=== PATIENT | female | born 1975 | race Caucasian/White ===

== ENCOUNTER → 2016-11-09 | Outpatient (REF) | payer OTHER ==
[~2016-11-09] MED LIST: /ONDA4TA OR; NAPR500T81 OR; No Historical Meds; PERC5TAB8 OR; PERC7.5T8 OR; [UNRECOGNIZED DRUG - OTHER] PO
== END ==
LOC: M LAB REF 16:42
PROVIDERS: ATTEND Otolaryngology
DX: L72.0 Epidermal cyst (principal)

== ENCOUNTER 2017-02-16 13:34 | Emergency (ER) | payer BC, OTHER ==
[~2017-02-16] VITALS: Ht 175.3 cm; Wt 99.3 kg
[2017-02-16] MEDS ORDERED: MIREIUD IU (13:43)
[2017-02-16] MEDS ORDERED: PHEN37.5 (13:43)
[2017-02-16] MEDS ORDERED: NS 1,000 ML IV ONE (13:45)
[2017-02-16] MEDS ORDERED: ONDANSETRON 4MG/2ML VIAL (J2405) IV ONE (13:45)
[2017-02-16] MEDS: MORPHINE 4 MG/ML 1ML SYRINGE IV PRN ×2 (13:49→14:12)
[2017-02-16 14:05] LABS: BASO % 0.7 % (0.0-1.0); EOS % 0.7 % (0.0-3.0); LARGE UNSTAINED CELL # 0.1 K/mm3 (0.0-0.4); LARGE UNSTAINED CELL % 1.9 % (0.0-4.0); LYMPH # 1.8 K/mm3 (1.5-4.5); LYMPH % 28.9 % (24.0-44.0); MEAN CORPUSCULAR HEMOGLOBIN 29.9 pg (27.0-33.0); MEAN CORPUSCULAR HGB CONC 33.2 g/dl (32.0-36.5); MONO # 0.3 K/mm3 (0.0-0.8); MONO % 4.7 % (0.0-5.0); NEUTROPHILS # 3.8 K/mm3 (1.8-7.7); NEUTROPHILS % 63.1 % (36.0-66.0); PLATELET COUNT, AUTOMATED 302 k/mm3 (150-450); RED CELL DISTRIBUTION WIDTH 12.6 % (11.5-14.5); WHITE BLOOD COUNT 6.1 K/mm3 (4.0-10.0)
[2017-02-16] MEDS ORDERED: KETOROLAC 30 MG/ML VIAL (J1885) As Ordered ONE (14:18)
[2017-02-16 14:24] LABS: ALBUMIN 4.1 GM/DL (3.2-5.2); ALBUMIN/GLOBULIN RATIO 1.03 (1.00-1.93); ALKALINE PHOSPHATASE 111 U/L (45-117); ALT/SGPT 22 U/L (12-78); ANION GAP 8 MEQ/L (8-16); AST/SGOT 17 U/L (15-37); BILIRUBIN,DIRECT 0.1 MG/DL (0.0-0.2); BILIRUBIN,TOTAL 0.4 MG/DL (0.2-1.0); BLOOD UREA NITROGEN 13 MG/DL (7-18); CALCIUM LEVEL 9.3 MG/DL (8.5-10.1); CARBON DIOXIDE LEVEL 27 MEQ/L (21-32); CHLORIDE LEVEL 104 MEQ/L (98-107); GLOMERULAR FILTRATION RATE > 60.0 (>58); GLUCOSE, FASTING 92 MG/DL (70-105); POTASSIUM SERUM 4.2 MEQ/L (3.5-5.1); SODIUM LEVEL 139 MEQ/L (136-145); TOTAL PROTEIN 8.1 GM/DL (6.4-8.2)
[2017-02-16] MEDS ORDERED: ISOVUE-370 76% 100ML VIAL (Q9967) As Ordered ONE (14:27)
[2017-02-16] MEDS ORDERED: KETOROLAC 30 MG/ML VIAL (J1885) IV ONE (14:30)
[2017-02-16] MEDS ORDERED: BENT20TA PO (16:12)
[2017-02-16 16:16] VITALS: BP 127/83
--- NOTE | 2017-02-17 09:19 | REP ---
CT ABDOMEN AND PELVIS WITH CONTRAST: HISTORY: Right lower quadrant pain. CONTRAST: Isovue-370, 100 mL. COMPARISON: 05/26/2015 The liver, gallbladder, pancreas, spleen, adrenal glands, and kidneys are normal in appearance. There is marked thinning of a segment of the distal ileum. There is no mass, adenopathy, or free fluid. The visualized lungs are clear. The urinary bladder and uterus are normal in appearance. An IUD is present in the uterus. The appendix is not seen. There is no appendicolith or abscess. IMPRESSION: There is narrowing of a segment of the distal ileum suspicious for inflammatory bowel disease. Signed by Yaniv Richardson MD 02/17/2017 09:26 A
== END 2017-02-16 16:23 | disposition home or self-care (01) ==
LOC: M ED 14:44
DX: K58.9 Irritable bowel syndrome, unspecified (principal); R10.84 Generalized abdominal pain
CPT/HCPCS: 74177; 80048; 80076; 81001; 81025; 83690; 85025; 96360; 96374; 96375; 99283; J1885; J2405; Q9967

== ENCOUNTER → 2017-02-19 | Outpatient (REF) | payer OTHER, BC ==
[~2017-02-19] MED LIST changes: +BENT20TA PO; +MIREIUD IU; +PHEN37.5
== END ==
LOC: M LAB REF 15:41
PROVIDERS: ATTEND Otolaryngology
DX: L72.0 Epidermal cyst (principal)

== ENCOUNTER → 2017-06-20 | Outpatient (CLI) | payer BC, OTHER ==
--- NOTE | 2017-06-21 14:26 | REP ---
Clinical: Asthma with acute exacerbation of this of breath. Comparison: 12/23/2014 . Technique: PA and lateral. Findings: The mediastinum and cardiac silhouette are normal. The lung mallory are clear and without acute consolidation, effusion, or pneumothorax. The skeletal structures are intact and normal. Impression: 1. No acute cardiopulmonary process. Signed by Jeyson Steinberg MD 06/20/2017 08:25 P
== END ==
LOC: M WUC 18:46
PROVIDERS: ATTEND Physician Assistant
DX: J45.21 Mild intermittent asthma with (acute) exacerbation (principal)

== ENCOUNTER 2017-12-26 11:34 | Emergency (ER) | payer BC, OTHER ==
[2017-12-26] MEDS: ONDANSETRON 4MG/2ML VIAL (J2405) IV (12:19)
[2017-12-26] MEDS: NS 1,000 ML IV (12:20)
[2017-12-26] MEDS: MORPHINE 4 MG/ML 1ML VIAL (J2270) IV ×2 (12:20→14:11)
[2017-12-26 12:34] LABS: BASO % 0.4 % (0.0-1.0); EOS # 0.1 10^3/uL (0.0-0.50); EOS % 1.3 % (0.0-3.0); HEMATOCRIT 41.5 % (36.0-47.0); HEMOGLOBIN 13.7 g/dl (12.0-16.0); IMMATURE GRANULOCYTE % 0.3 % (0-3.0); LYMPH # 1.9 10^3/uL (1.5-4.5); LYMPH % 28.3 % (24.0-44.0); MEAN CORPUSCULAR HEMOGLOBIN 29.3 pg (27.0-33.0); MEAN CORPUSCULAR VOLUME 88.7 fl (80.0-96.0); MONO # 0.5 10^3/uL (0.0-0.8); NEUTROPHILS # 4.2 10^3/uL (1.8-7.7); NEUTROPHILS % 61.7 % (36.0-66.0); PLATELET COUNT, AUTOMATED 330 10^3/uL (150-450); RED BLOOD COUNT 4.68 10^6/uL (4.00-5.40); RED CELL DISTRIBUTION WIDTH 12.8 % (11.5-14.5); WHITE BLOOD COUNT 6.8 10^3/uL (4.0-10.0)
[2017-12-26 13:01] LABS: ALBUMIN 3.9 GM/DL (3.2-5.2); ALBUMIN/GLOBULIN RATIO 0.95 (1.00-1.93); ALKALINE PHOSPHATASE 106 U/L (45-117); ALT/SGPT 31 U/L (12-78); ANION GAP 7 MEQ/L (8-16); AST/SGOT 24 U/L (7-37); BILIRUBIN,DIRECT 0.1 MG/DL (0.0-0.2); BILIRUBIN,TOTAL 0.6 MG/DL (0.2-1.0); BLOOD UREA NITROGEN 10 MG/DL (7-18); CARBON DIOXIDE LEVEL 28 MEQ/L (21-32); CHLORIDE LEVEL 105 MEQ/L (98-107); CREATININE FOR GFR 0.75 MG/DL (0.55-1.30); GLOMERULAR FILTRATION RATE > 60.0 (>58); GLUCOSE, FASTING 86 MG/DL (70-100); LIPASE 96 U/L (73-393); POTASSIUM SERUM 4.2 MEQ/L (3.5-5.1); SODIUM LEVEL 140 MEQ/L (136-145)
[2017-12-26] MEDS ORDERED: ISOVUE-370 76% 100ML VIAL (Q9967) As Ordered (13:26)
[2017-12-26] MEDS: HYDROmorphone HCL 1 MG/ML SYRINGE (J1170) IV ×2 (14:41→15:22)
[2017-12-26] MEDS ORDERED: HYDROmorphone HCL 1 MG/ML SYRINGE (J1170) IV (15:15)
[2017-12-26] MEDS: METOCLOPRAMIDE INJ 10MG/2ML VIAL (J2765) IV (16:50)
[2017-12-26 16:52] LABS: KETONE, URINE AUTO RFX 1+ mg/dL (NEGATIVE); LEUKOCYTE ESTERASE UR AUTO RFX NEGATIVE (NEGATIVE); MUCUS, URINE RFX SMALL (NEGATIVE); NITRITE, URINE AUTO RFX NEGATIVE (NEGATIVE); RBC, URINE AUTO RFX 1 /HPF (0-3); SPECIFIC GRAVITY UR AUTO RFX 1.059 (1.002-1.035); SQUAM EPITHELIAL CELL UR AURFX 1 /HPF (0-6); WBC, URINE AUTO RFX 0 /HPF (0-3)
[2017-12-26 17:02] LABS: INFLUENZA A AMPLIFICATION NEGATIVE (NEGATIVE); INFLUENZA B AMPLIFICATION NEGATIVE (NEGATIVE)
[2017-12-26] MEDS: KETOROLAC 30 MG/ML VIAL (J1885) IV (17:43)
[2017-12-26] MEDS: OXYCODONE/APAP 5MG/325MG(BULK FOR ED) 1 TABLET PO (18:31)
== END 2017-12-26 18:55 | disposition home or self-care (01) ==
LOC: M ED 11:34
DX: R10.31 Right lower quadrant pain (principal); Q43.3 Congenital malformations of intestinal fixation; R19.7 Diarrhea, unspecified; K58.9 Irritable bowel syndrome, unspecified; N80.9 Endometriosis, unspecified; Z79.899 Other long term (current) drug therapy
CPT/HCPCS: J1170

== ENCOUNTER → 2018-10-10 | Outpatient (REF) | payer OTHER ==
[~2018-10-10] MED LIST changes: +ALBU17IN2 INH; +ALBU83IN NEB; +MIRE1IUD IU; -MIREIUD IU; +OXYC1TAB23 PO; +PHEN37.5 PO; +PRED10TA2; +QVAR40AE12 INH; +REGL10TA6 PO; +TESS100C PO; +TUSS1SUS2 PO; +VITMTA PO
== END ==
LOC: M WUC 13:03
PROVIDERS: ATTEND Physician Assistant
DX: J06.9 Acute upper respiratory infection, unspecified (principal)

== ENCOUNTER 2018-10-14 20:29 | Emergency (ER) | payer BC, OTHER ==
[~2018-10-14] VITALS: Ht 175.3 cm; Wt 104.5 kg
[~2018-10-14 20:29] MED LIST changes: -ALBU17IN2 INH; -ALBU83IN NEB; -PRED10TA2; -QVAR40AE12 INH; -TESS100C PO; -TUSS1SUS2 PO
[2018-10-14] MEDS ORDERED: ALBU83IN NEB (20:37)
[2018-10-14] MEDS ORDERED: PRED10TA2 (20:37)
[2018-10-14] MEDS ORDERED: ALBU17IN2 INH (20:37)
[2018-10-14] MEDS ORDERED: QVAR40AE12 INH (20:42)
[2018-10-14] MEDS ORDERED: MIRE1IUD IU (20:47)
[2018-10-14] MEDS ORDERED: MAG SULF 1GM/100ML (MAG RUN) 1 GM in APPROPRIATE DILUENT 1 EA IV ONE ×4 (21:15)
[2018-10-14] MEDS ORDERED: TUSSICAPS ER 10/8MG CAPSULE PO ONE (21:15)
[2018-10-14 21:32] LABS: BASO % 0.2 % (0.0-1.0); HEMATOCRIT 38.9 % (36.0-47.0); HEMOGLOBIN 12.9 g/dl (12.0-15.5); LYMPH # 0.9 10^3/uL (1.5-4.5); LYMPH % 8.5 % (24.0-44.0); MEAN CORPUSCULAR HEMOGLOBIN 28.9 pg (27.0-33.0); MEAN CORPUSCULAR HGB CONC 33.2 g/dl (32.0-36.5); MEAN CORPUSCULAR VOLUME 87.2 fl (80.0-96.0); MONO # 0.4 10^3/uL (0.0-0.8); MONO % 3.4 % (0.0-5.0); NEUTROPHILS # 9.4 10^3/uL (1.8-7.7); NEUTROPHILS % 87.3 % (36.0-66.0); PLATELET COUNT, AUTOMATED 320 10^3/uL (150-450); RED BLOOD COUNT 4.46 10^6/uL (4.00-5.40); WHITE BLOOD COUNT 10.8 10^3/uL (4.0-10.0)
[2018-10-14 21:33] LABS: VENOUS BASE EXCESS -0.6 (-2.0-2.0); VENOUS HCO3 23.2 MEQ/L (23.0-27.0); VENOUS O2 SATURATION 98.6 % (60.0-80.0); VENOUS PARTIAL PRESSURE CO2 35.5 mmHg (38.0-50.0); VENOUS PARTIAL PRESSURE O2 115.8 mmHg (30.0-50.0); VENOUS PH 7.433 UNITS (7.330-7.430); VENOUS STANDARD HCO3 24.1 MEQ/L; VENOUS TOTAL CO2 24.3 MEQ/L (24.0-28.0)
[2018-10-14] MEDS: IPRATROPIUM 0.5MG/ALBUTEROL 2.5MG INH SOL UD 3ML (DUONEB)(J7620) NEB PRN ×2 (21:42→23:25)
[2018-10-14 21:57] LABS: BLOOD UREA NITROGEN 13 MG/DL (7-18); CALCIUM LEVEL 8.8 MG/DL (8.5-10.1); CARBON DIOXIDE LEVEL 23 MEQ/L (21-32); CHLORIDE LEVEL 107 MEQ/L (98-107); CREATININE FOR GFR 0.83 MG/DL (0.55-1.30); GLOMERULAR FILTRATION RATE > 60.0 (>58); GLUCOSE, FASTING 135 MG/DL (70-100); POTASSIUM SERUM 4.1 MEQ/L (3.5-5.1); SODIUM LEVEL 140 MEQ/L (136-145)
[2018-10-14] MEDS ORDERED: NS 1,000 ML IV ONE ×2 (22:15→23:15)
[2018-10-14] MEDS ORDERED: NORCO, ANEXSIA 5/325MG TABLET (HYDROcodone/ACETAMINOPHEN) PO ONE (22:45)
[2018-10-14] MEDS ORDERED: BENZONATATE 100 MG CAP PO ONE (23:30)
[2018-10-14] MEDS ORDERED: TESS100C PO (23:51)
[2018-10-14] MEDS ORDERED: TUSS1SUS2 PO (23:51)
[2018-10-15 00:45] VITALS: BP 117/70
--- NOTE | 2018-10-15 06:58 | REP ---
Clinical: Cough and dyspnea . Comparison: 06/20/2017 . Technique: PA and lateral. Findings: The mediastinum and cardiac silhouette are normal. The lung mallory are clear and without acute consolidation, effusion, or pneumothorax. The skeletal structures are intact and normal. Impression: 1. No acute cardiopulmonary process. Electronically Signed by Jeyson Steinberg MD 10/15/2018 06:49 A
== END 2018-10-15 00:52 | disposition home or self-care (01) ==
LOC: M ED 20:29
DX: J98.01 Acute bronchospasm (principal); Z79.52 Long term (current) use of systemic steroids; Z79.51 Long term (current) use of inhaled steroids
CPT/HCPCS: 36415; 71046; 80048; 82803; 83605; 85025; 85379; 94640; 99284; J3475

== ENCOUNTER → 2019-08-12 | Outpatient (CLI) | payer BC, OTHER ==
[~2019-08-12] MED LIST changes: -/ONDA4TA OR; +ALBU83IN NEB; +ONDA-1 OR; +PRED10TA2; +PROV108A INH; +QVAR40AE12 INH; +TESS100C PO; +TUSS1SUS2 PO
[2019-08-12 16:24] LABS: HEMATOCRIT 40.8 % (36.0-47.0); HEMOGLOBIN 13.1 g/dl (12.0-15.5); MEAN CORPUSCULAR HEMOGLOBIN 29.4 pg (27.0-33.0); MEAN CORPUSCULAR HGB CONC 32.1 g/dl (32.0-36.5); MEAN CORPUSCULAR VOLUME 91.5 fl (80.0-96.0); PLATELET COUNT, AUTOMATED 314 10^3/uL (150-450); RED BLOOD COUNT 4.46 10^6/uL (4.00-5.40); WHITE BLOOD COUNT 6.3 10^3/uL (4.0-10.0)
[2019-08-12 16:34] LABS: ALBUMIN 3.7 GM/DL (3.2-5.2); ALT/SGPT 23 U/L (12-78); BILIRUBIN,TOTAL 0.5 MG/DL (0.2-1.0); BLOOD UREA NITROGEN 10 MG/DL (7-18); CALCIUM LEVEL 9.1 MG/DL (8.5-10.1); CARBON DIOXIDE LEVEL 27 MEQ/L (21-32); CHLORIDE LEVEL 108 MEQ/L (98-107); CHOLESTEROL LEVEL 193 MG/DL (<200); CHOLESTEROL RISK RATIO 3.385 (<5); CREATININE FOR GFR 0.75 MG/DL (0.55-1.30); GLOMERULAR FILTRATION RATE > 60.0 (>58); GLUCOSE, FASTING 86 MG/DL (70-100); HDL CHOLESTEROL 57 MG/DL (>40); LDL CHOLESTEROL 122 MG/DL (<100); NON-HDL-C 136 MG/DL; POTASSIUM SERUM 4.7 MEQ/L (3.5-5.1); SODIUM LEVEL 140 MEQ/L (136-145); TOTAL PROTEIN 7.3 GM/DL (6.4-8.2); TRIGLYCERIDES LEVEL 70 MG/DL (<150)
== END ==
LOC: M WUC 12:00
PROVIDERS: ATTEND Nurse Practitioner Family
DX: R03.0 Elevated blood-pressure reading, without diagnosis of hypertension (principal)

== ENCOUNTER 2020-09-05 19:51 | Emergency (ER) | payer BC, OTHER ==
[~2020-09-05] VITALS: Ht 175.3 cm; Wt 108.0 kg
[2020-09-05] MEDS ORDERED: IBUPROFEN 600MG TAB PO ONE (20:30)
[2020-09-05] MEDS: ALBUTEROL 90 MCG/ACT 8GM HFA INHALER INH SCH ×2 (21:01→21:02)
[2020-09-05 21:14] LABS: BASO % 0.4 % (0.0-1.0); HEMATOCRIT 39.7 % (36.0-47.0); HEMOGLOBIN 12.8 g/dl (12.0-15.5); LYMPH # 0.7 10^3/uL (1.5-5.0); LYMPH % 14.7 % (24.0-44.0); MEAN CORPUSCULAR HEMOGLOBIN 27.8 pg (27.0-33.0); MEAN CORPUSCULAR HGB CONC 32.2 g/dl (32.0-36.5); MEAN CORPUSCULAR VOLUME 86.3 fl (80.0-96.0); MONO # 0.4 10^3/uL (0.0-0.8); NEUTROPHILS # 3.7 10^3/uL (1.5-8.5); NEUTROPHILS % 76.3 % (36.0-66.0); PLATELET COUNT, AUTOMATED 183 10^3/uL (150-450); WHITE BLOOD COUNT 4.9 10^3/uL (4.0-10.0)
[2020-09-05 21:25] LABS: INR 0.92; PROTHROMBIN TIME 12.5 SECONDS (12.5-14.3)
[2020-09-05 21:26] LABS: PARTIAL THROMBOPLASTIN TIME 32.6 SECONDS (24.2-38.5)
[2020-09-05 21:28] LABS: D-DIMER QUANT 709.73 ng/ml (<500)
[2020-09-05 21:29] LABS: HCG, SERUM QUALITATIVE NEGATIVE (NEGATIVE)
[2020-09-05 21:34] LABS: ALBUMIN 3.2 GM/DL (3.2-5.2); ALT/SGPT 22 U/L (12-78); BILIRUBIN,TOTAL 0.2 MG/DL (0.2-1.0); BLOOD UREA NITROGEN 13 MG/DL (7-18); C REACTIVE PROTEIN QUANTITATIV 7.75 MG/DL (0.00-0.30); CALCIUM LEVEL 8.1 MG/DL (8.5-10.1); CARBON DIOXIDE LEVEL 24 MEQ/L (21-32); CHLORIDE LEVEL 107 MEQ/L (98-107); CK-MB VALUE MASS < 1.0 NG/ML (<3.6); CPK CREATINE PHOSPHOKINASE 57 U/L (26-192); CREATININE FOR GFR 0.66 MG/DL (0.55-1.30); FERRITIN 196 NG/ML (8-252); GLOMERULAR FILTRATION RATE > 60.0 (>58); GLUCOSE, FASTING 102 MG/DL (70-100); LDH LACTATE DEHYDROGENASE 197 U/L (84-246); MB/CK RELATIVE INDEX 1.75 (< OR =4); POTASSIUM SERUM 3.3 MEQ/L (3.5-5.1); SODIUM LEVEL 138 MEQ/L (136-145); TOTAL PROTEIN 6.9 GM/DL (6.4-8.2); TROPONIN I < 0.02 NG/ML (< 0.10)
--- NOTE | 2020-09-05 22:00 | REPVR ---
PROCEDURE INFORMATION: Exam: XR Chest, 1 View Exam date and time: 09/05/2020 8:59 PM Age: 44 years old Clinical indication: Screening exam; Other screening; Additional info: Coronavirus workup TECHNIQUE: Imaging protocol: XR of the chest Views: 1 view. COMPARISON: CR Chest, 2 view PA, Lat 10/14/2018 9:54 PM FINDINGS: Lungs: There is vague increased density in the left costophrenic sulcus. The remainder of the lung parenchyma appears relatively clear. Pleural space: No pleural effusion or pneumothorax. Heart/Mediastinum: Cardiomediastinal silhouette is not enlarged. Bones/joints: No significant skeletal findings. IMPRESSION: Vague increased density in left lower lobe which could be due to early pneumonia. Electronically signed by: Magalys Aguillon On 09/05/2020 21:59:35 PM
[2020-09-05] MEDS ORDERED: AZIT-12 PO (22:22)
[2020-09-05] MEDS ORDERED: AZITHROMYCIN 250MG TABLET PO ONE (22:30)
[2020-09-05 22:45] VITALS: BP 121/70
--- NOTE | 2020-09-06 20:54 | ECGEPIP ---
[facility] - ED Test Date: 2020-09-05 Pat Name: MICHAEL MENDEZ Department: Room: - Gender: Female Carpenter Packing: : [id number] Requested By: Aung Aguila Order Number: [id number] Reading MD: Delfino Davis Measurements Intervals [place] Rate: 102 P: 12 [place]: 158 QRS: 5 QRSD: 88 T: 13 QT: 325 QTc: 424 Interpretive Statements SINUS TACHYCARDIA NONSPECIFIC T-WAVE ABNORMALITY Comparison tracing not on file Baseline artifact Electronically Signed on 09-06-2020 20:54:18 EST by Delfino Davis
== END 2020-09-05 22:58 | disposition home or self-care (01) ==
LOC: M ED 19:51
DX: U07.1 COVID-19 (principal); J18.1 Lobar pneumonia, unspecified organism; R00.0 Tachycardia, unspecified; J45.909 Unspecified asthma, uncomplicated; Z79.51 Long term (current) use of inhaled steroids

== ENCOUNTER → 2020-09-29 | Outpatient (CLI) | payer BC, OTHER ==
[~2020-09-29] MED LIST changes: +AZIT-12 PO
[2020-09-29 11:07] LABS: BASO # 0.1 10^3/uL (0.0-0.2); BASO % 0.5 % (0.0-1.0); EOS # 0.3 10^3/uL (0.0-0.5); EOS % 2.5 % (0.0-3.0); HEMATOCRIT 41.1 % (36.0-47.0); HEMOGLOBIN 13.1 g/dl (12.0-15.5); LYMPH # 3.1 10^3/uL (1.5-5.0); LYMPH % 29.8 % (24.0-44.0); MEAN CORPUSCULAR HEMOGLOBIN 29.2 pg (27.0-33.0); MEAN CORPUSCULAR HGB CONC 31.9 g/dl (32.0-36.5); MEAN CORPUSCULAR VOLUME 91.7 fl (80.0-96.0); MONO # 1.2 10^3/uL (0.0-0.8); MONO % 10.9 % (0.0-5.0); NEUTROPHILS # 5.9 10^3/uL (1.5-8.5); NEUTROPHILS % 55.9 % (36.0-66.0); PLATELET COUNT, AUTOMATED 341 10^3/uL (150-450); RED BLOOD COUNT 4.48 10^6/uL (4.00-5.40); WHITE BLOOD COUNT 10.5 10^3/uL (4.0-10.0)
[2020-09-29 11:40] LABS: BLOOD UREA NITROGEN 8 MG/DL (7-18); CALCIUM LEVEL 8.9 MG/DL (8.5-10.1); CARBON DIOXIDE LEVEL 30 MEQ/L (21-32); CHLORIDE LEVEL 107 MEQ/L (98-107); CREATININE FOR GFR 0.68 MG/DL (0.55-1.30); GLOMERULAR FILTRATION RATE > 60.0 (>58); GLUCOSE, FASTING 76 MG/DL (70-100); POTASSIUM SERUM 4.2 MEQ/L (3.5-5.1); SODIUM LEVEL 140 MEQ/L (136-145)
--- NOTE | 2020-09-29 12:54 | REP ---
INDICATION: MILD INTERMITTENT ASTHMA WITH EXACERBATION. COMPARISON: Portable chest dated 09/05/2020 and PA and lateral chest dated 09/14/2018. TECHNIQUE: PA and lateral chest. FINDINGS: The subtle density identified in the left costophrenic angle on 09/05/2020 has resolved. The lung mallory are clear. The cardiac size is normal. The liliana, mediastinum, and skeletal structures are unremarkable. IMPRESSION: Negative PA and lateral chest. The focal left costophrenic angle density identified on 09/05/2020 has resolved. <Electronically signed by Enrique Aguirre > 09/29/20 [id number]
== END ==
LOC: M WUC 09:27
PROVIDERS: ATTEND Nurse Practitioner Family
DX: J45.21 Mild intermittent asthma with (acute) exacerbation (principal)

== ENCOUNTER → 2020-12-14 | Outpatient (REF) | payer OTHER ==
[2020-12-14 17:47] LABS: PERCENT SATURATION 13.6 % (13.2-45.0)
== END ==
LOC: M LAB REF 16:37
PROVIDERS: ATTEND Internal Medicine
DX: L63.8 Other alopecia areata (principal)

== ENCOUNTER → 2021-09-25 | Outpatient (REF) | payer OTHER ==
[2021-09-25 18:17] LABS: PERCENT SATURATION 13.2 % (13.2-45.0)
== END ==
LOC: M LAB REF 16:35
PROVIDERS: ATTEND Internal Medicine
DX: D50.9 Iron deficiency anemia, unspecified (principal)

== ENCOUNTER → 2022-03-05 | Outpatient (CLI) | payer BC, OTHER | LOC: M WUC 09:57 | PROVIDERS: ATTEND Physician Assistant Medical | DX: J10.1 Influenza due to other identified influenza virus with other respiratory manifestations (principal); R05.9 Cough, unspecified ==

== ENCOUNTER → 2023-04-22 | Outpatient (REF) | payer BC, OTHER ==
[~2023-04-22] MED LIST changes: +ALBU2.5V10 NEB; +ALBU6.7H6 INH; -ALBU83IN NEB; -PROV108A INH
== END ==
LOC: M LAB REF 10:12
PROVIDERS: ATTEND Student in an Organized Health Care Education/Training Program
DX: M54.50 Low back pain, unspecified (principal)

== ENCOUNTER → 2023-07-31 | Outpatient (CLI) | payer BC, OTHER | LOC: M WHC 12:59 | PROVIDERS: ATTEND Advanced Practice Midwife | DX: Z12.31 Encounter for screening mammogram for malignant neoplasm of breast (principal) ==

== ENCOUNTER → 2023-10-07 | Outpatient (CLI) | payer BC, OTHER | LOC: M WUC 12:49 | PROVIDERS: ATTEND Family Medicine | DX: R05.9 Cough, unspecified (principal) ==

== ENCOUNTER → 2024-05-04 | Outpatient (CLI) | payer BC ==
[2024-05-04 13:37] LABS: HEMATOCRIT 41.9 % (36.0-47.0); HEMOGLOBIN 13.1 g/dl (12.0-15.5); MEAN CORPUSCULAR HEMOGLOBIN 27.5 pg (27.0-33.0); MEAN CORPUSCULAR HGB CONC 31.3 g/dl (32.0-36.5); PLATELET COUNT, AUTOMATED 320 10^3/uL (150-450); RED BLOOD COUNT 4.76 10^6/uL (4.00-5.40); WHITE BLOOD COUNT 7.5 10^3/uL (4.0-10.0)
== END ==
LOC: M PLALAB 10:51
PROVIDERS: ATTEND Advanced Practice Midwife
DX: Z92.0 Personal history of contraception (principal)

== ENCOUNTER 2024-12-11 05:57 | Day surgery (SDC) | payer BC ==
[~2024-12-11] VITALS: Ht 175.3 cm; Wt 111.2 kg
[~2024-12-11 05:57] MED LIST changes: +CRAN450T4 PO; +HYDR-3363 PO; +LEXA1TAB PO; +LOSA25TA13 PO; +OMEP40CA4 PO; +SEMA2.4P SC
[2024-12-11 06:43] LABS: HEMATOCRIT 37.9 % (36.0-47.0); HEMOGLOBIN 12.3 g/dl (12.0-15.5); MEAN CORPUSCULAR HEMOGLOBIN 27.9 pg (27.0-33.0); MEAN CORPUSCULAR HGB CONC 32.5 g/dl (32.0-36.5); MEAN CORPUSCULAR VOLUME 85.9 fl (80.0-96.0); PLATELET COUNT, AUTOMATED 325 10^3/uL (150-450); RED BLOOD COUNT 4.41 10^6/uL (4.00-5.40); WHITE BLOOD COUNT 7.6 10^3/uL (4.0-10.0)
[2024-12-11] MEDS ORDERED: SUGAMMADEX SODIUM 500 MG/5 ML VIAL (BRIDION) As Ordered ONE (07:11)
[2024-12-11] MEDS ORDERED: LIDOCAINE 2% 100MG/5ML SDV (FOR ANES.) As Ordered ONE (07:11)
[2024-12-11] MEDS ORDERED: propofoL 200 MG/20 ML VIAL As Ordered ONE (07:11)
[2024-12-11] MEDS ORDERED: ACETAMINOPHEN 1000MG/100ML IV BAG As Ordered ONE (07:11)
[2024-12-11] MEDS ORDERED: ONDANSETRON 4MG 2ML VIAL As Ordered ONE (07:11)
[2024-12-11] MEDS ORDERED: KETOROLAC 60MG 2ML VIAL As Ordered ONE (07:11)
[2024-12-11] MEDS ORDERED: ROCURONIUM BROMIDE 50MG/5ML VIAL As Ordered ONE (07:11)
[2024-12-11] MEDS ORDERED: KETAMINE HCL 200MG/20ML VIAL As Ordered ONE (07:12)
[2024-12-11] MEDS ORDERED: MIDAZOLAM INJ 2MG/2ML VIAL As Ordered ONE (07:12)
[2024-12-11] MEDS ORDERED: fentaNYL 100 MCG/2 ML INJECTION As Ordered ONE (07:12)
[2024-12-11] MEDS: ceFAZolin SOD 2 GM in IV 1 EA IV ONE (07:45)
[2024-12-11] MEDS ORDERED: fentaNYL 100 MCG/2 ML INJECTION IV PRN (09:20)
[2024-12-11] MEDS ORDERED: LR 1,000 ML IV SCH (09:20)
[2024-12-11] MEDS: HYDROMORPHONE HCL 0.5 MG/ 0.5 ML SYRINGE IV PRN (09:26)
[2024-12-11] MEDS: ONDANSETRON 4MG 2ML VIAL IV PRN (09:27)
[2024-12-11] MEDS: oxyCODONE 5MG TAB PO PRN (09:32)
[2024-12-11] MEDS: PROMETHAZINE 25MG/ML 1ML VIAL IV PRN (09:46)
[2024-12-11] MEDS ORDERED: PERCOCET 5MG/325MG TAB PO PRN ×2 (10:30)
[2024-12-11 12:47] VITALS: BP 121/77; TEMP 98.1; O2SAT 97
[2024-12-11] MEDS ORDERED: KETOROLAC 30 MG/ML 1ML VIAL IV SCH (15:00)
== END 2024-12-11 13:00 | disposition home or self-care (01) ==
LOC: M SDC 05:57
PROVIDERS: ATTEND Obstetrics & Gynecology
DX: D25.9 Leiomyoma of uterus, unspecified (principal); N80.03 Adenomyosis of the uterus; N88.8 Other specified noninflammatory disorders of cervix uteri; N93.9 Abnormal uterine and vaginal bleeding, unspecified; Z79.899 Other long term (current) drug therapy
CPT/HCPCS: 36415; 58571; 81025; 85027; 86850; 86900; 86901; 88307; J0665; J0690; J1100; J1171; J1885; J2250; J2405; J2550; J3010; S2900

== ENCOUNTER → 2024-12-22 | Outpatient (REF) | payer BC ==
[2024-12-22 20:57] LABS: PERCENT SATURATION 13.3 % (13.2-45.0)
== END ==
LOC: M LAB REF 18:15
PROVIDERS: ATTEND Internal Medicine
DX: D64.9 Anemia, unspecified (principal); R53.83 Other fatigue